=== PATIENT | female | born 1975 | race American Indian/Alaskan Native ===

== ENCOUNTER 2021-07-29 10:58 | Emergency (ER) | payer MEDICAID ==
[2021-07-29] MEDS ORDERED: ONDANSETRON 4 MG ODT TAB PO ONE (11:15)
[2021-07-29] MEDS ORDERED: ACETAMINOPHEN W/CODEINE 300-30 MG TAB PO ONE (11:15)
--- NOTE | 2021-07-29 11:18 | Emergency Department Report ---
ED General Adult HPI - General Chief complaint: Nausea/Vomiting/Diarrhea Stated complaint: CHILLS/BODY PAIN Time Seen by Provider: 07/29/21 11:10 Source: patient Mode of arrival: Ambulatory Limitations: No Limitations - History of Present Illness Initial comments: Patient is a 45-year-old female presents emergency room complaints of generalized body aches that began 4 days ago. She has associated chills. Patient states that she is also been having nausea and had one episode of vomiting this morning. She states that she is also been constipated and has not been able to have a bowel movement for approximately 4 days. She has not tried any medication for the constipation. She states that she has been tolerating p.o. intake and is still eating. She states that she feels like she needs to have a bowel movement but is unable and has been straining. She denies any fever, cough, shortness of breath, chest pain, abdominal pain, diarrhea, hemat ochezia, melena, hematemesis. No past medical history. No allergies to medications. She had a partial hysterectomy. She states that she has been fully vaccinated for COVID-19. - Related Data Previous Rx's Medication Instructions Recorded Last Taken Type HYDROcodone/APAP 5-325 [[place] 1 each PO Q6HR PRN #12 tablet 07/29/21 Unknown Rx 5/325] Ondansetron [Zofran Odt] 4 mg PO Q8HR PRN #10 tab.rapdis 07/29/21 Unknown Rx cephALEXin [Keflex] 500 mg PO BID 7 Days #14 cap 07/29/21 Unknown Rx Allergies Allergy/AdvReac Type Severity Reaction Status Date / Time No Known Allergies Allergy Unverified 07/29/21 11:05 ED Review of Systems ROS: Stated complaint: CHILLS/BODY PAIN Other details as noted in HPI Comment: All other systems reviewed and negative ED Past Medical Hx - Past Medical History Previous Medical History?: No - Surgical History Past Surgical History?: No - Medications Home Medications: Home Medications Medication Instructions Recorded Confirmed Last Taken Type HYDROcodone/APAP 5-325 [[place] 1 each PO Q6HR PRN #12 tablet 07/29/21 Unknown Rx 5/325] Ondansetron [Zofran Odt] 4 mg PO Q8HR PRN #10 tab.rapdis 07/29/21 Unknown Rx cephALEXin [Keflex] 500 mg PO BID 7 Days #14 cap 07/29/21 Unknown Rx ED Physical Exam - General Limitations: No Limitations General appearance: alert, in no apparent distress - Head Head exam: Present: atraumatic, normocephalic - Eye Eye exam: Present: normal appearance - ENT ENT exam: Present: mucous membranes moist - Respiratory Respiratory exam: Present: normal lung sounds bilaterally. Absent: respiratory distress, wheezes, rales, rhonchi, stridor, chest wall tenderness, accessory muscle use, decreased breath sounds, prolonged expiratory - Cardiovascular Cardiovascular Exam: Present: regular rate, normal rhythm, normal heart sounds. Absent: systolic murmur, diastolic murmur, rubs, gallop - GI/Abdominal GI/Abdominal exam: Present: soft, normal bowel sounds. Absent: distended, tende rness, guarding, rebound, rigid - Neurological Exam Neurological exam: Present: alert, oriented X3 - Psychiatric Psychiatric exam: Present: normal affect, normal mood - Skin Skin exam: Present: warm, dry, intact ED Course Vital Signs 07/29/21 07/29/21 07/29/21 11:05 11:28 11:31 Temperature 98.7 F Pulse Rate 88 Respiratory 16 Rate Blood Pressure 120/86 Blood Pressure [Right] O2 Sat by Pulse 98 99 Oximetry 07/29/21 07/29/21 07/29/21 11:32 12:20 12:22 Temperature 98.4 F 97.7 F 97.6 F Pulse Rate 73 81 66 Respiratory 16 14 12 Rate Blood Pressure 111/70 Blood Pressure 117/63 111/70 [Right] O2 Sat by Pulse 99 99 99 Oximetry 07/29/21 15:29 Temperature 97.7 F Pulse Rate 67 Respiratory 14 Rate Blood Pressure Blood Pressure 121/75 [Right] O2 Sat by Pulse 99 Oximetry ED Medical Decision Making - Lab Data Result diagrams: 07/29/21 11:31 07/29/21 11:31 Lab Results 07/29/21 07/29/21 07/29/21 Range/Units 11:31 11:31 11:50 WBC 17.0 H (4.5-11.0) K/mm3 RBC 4.90 (3.65-5.03) M/mm3 Hgb 15.5 H (10.1-14.3) gm/dl Hct 43.4 H (30.3-42.9) % MCV 89 (79-97) fl MCH 32 (28-32) pg MCHC 36 H (30-34) % RDW 15.1 (13.2-15.2) % Plt Count 172 (140-440) K/mm3 Lymph % (Auto) 6.4 L (13.4-35.0) % [place] % (Auto) 10.6 H (0.0-7.3) % Eos % (Auto) 0.0 (0.0-4.3) % Baso % (Auto) 0.3 (0.0-1.8) % Lymph # (Auto) 1.1 L (1.2-5.4) K/mm3 [place] # (Auto) 1.8 H (0.0-0.8) K/mm3 Eos # (Auto) 0.0 (0.0-0.4) K/mm3 Baso # (Auto) 0.1 (0.0-0.1) K/mm3 Seg Neutrophils % 82.7 H (40.0-70.0) % Seg Neutrophils # 14.1 H (1.8-7.7) K/mm3 Sodium 137 (137-145) mmol/L Potassium 3.5 L (3.6-5.0) mmol/L Chloride 100.5 (98-107) mmol/L Carbon Dioxide 21 L (22-30) mmol/L Anion Gap 19 mmol/L BUN 12 (7-17) mg/dL Creatinine 0.7 (0.6-1.2) mg/dL Estimated GFR > 60 ml/min BUN/Creatinine Ratio 17 % Glucose 106 H (65-100) mg/dL Calcium 9.3 (8.4-10.2) mg/dL Total Bilirubin 1.00 (0.1-1.2) mg/dL AST 52 H (5-40) units/L ALT 44 (7-56) units/L Alkaline Phosphatase 96 (35-129) units/L Total Creatine Kinase 55 (30-135) units/L Total Protein 8.1 (6.3-8.2) g/dL Albumin 4.2 (3.9-5) g/dL Albumin/Globulin Ratio 1.1 % Lipase 15 (13-60) units/L Urine Color [place] (Yellow) Urine Turbidity Clear (Clear) Urine pH 5.0 (5.0-7.0) Ur Specific [place] 1.029 (1.003-1.030) Urine Protein 100 mg/dl (Negative) mg/dL Urine Glucose (UA) Neg (Negative) mg/dL Urine Ketones 20 (Negative) mg/dL Urine Blood Mod (Negative) Urine Nitrite Neg (Negative) Urine Bilirubin Neg (Negative) Urine Urobilinogen 4.0 (<2.0) mg/dL Ur Leukocyte Esterase Sm (Negative) Urine WBC (Auto) 41.0 H (0.0-6.0) /HPF Urine RBC (Auto) 40.0 (0.0-6.0) /HPF U Epithel Cells (Auto) 6.0 (0-13.0) /HPF Urine Bacteria (Auto) 1+ (Negative) /HPF Urine Mucus 1+ /HPF Vital Signs 07/29/21 07/29/21 07/29/21 11:05 11:28 11:31 Temperature 98.7 F Pulse Rate 88 Respiratory 16 Rate Blood Pressure 120/86 Blood Pressure [Right] O2 Sat by Pulse 98 99 Oximetry 07/29/21 07/29/21 07/29/21 11:32 12:20 12:22 Temperature 98.4 F 97.7 F 97.6 F Pulse Rate 73 81 66 Respiratory 16 14 12 Rate Blood Pressure 111/70 Blood Pressure 117/63 111/70 [Right] O2 Sat by Pulse 99 99 99 Oximetry 07/29/21 15:29 Temperature 97.7 F Pulse Rate 67 Respiratory 14 Rate Blood Pressure Blood Pressure 121/75 [Right] O2 Sat by Pulse 99 Oximetry - Radiology Data Radiology results: report reviewed Ordering Physician: SUZI IBANEZ Date of Service: 07/29/21 Procedure(s): XR abdomen 2V Accession Number(s): [id number] cc: SUZI IBANEZ Fluoro Time In Minutes: ABDOMEN 2 view INDICATION / CLINICAL INFORMATION: constipation, vomiting. COMPARISON: None available. FINDINGS: TUBES / LINES: None. BOWEL GAS PATTERN: No significant abnormality. FREE AIR / EXTRALUMINAL GAS: None seen. ADDITIONAL FINDINGS: No significant additional findings. IMPRESSION: 1. No significant abnormality. Signer Name: Riley Nichols MD Signed: 07/29/2021 12:18 PM Workstation Name: [email or web address] Transcribed By: SB Dictated By: RILEY NICHOLS MD Electronically Authenticated By: RILEY NICHOLS MD Signed Date/Time: 07/29/211217 DD/ 17 TD/TT: Ordering Physician: SUZI IBANEZ Date of Service: 07/29/21 Procedure(s): CT abdomen pelvis w con Accession Number(s): [id number] cc: SUZI IBANEZ CT ABDOMEN AND PELVIS WITH CONTRAST HISTORY: abd pain, vomiting, leukocytosis 100 ml omni 300 COMPARISON: None TECHNIQUE: Routine abdominal and pelvic CT exam performed following intravenous contrast administration.. All CT scans at this location are performed using CT dose reduction for ALARA by means of automated exposure control. FINDINGS: CT ABDOMEN: Lung Bases: No significant abnormality. Liver: No significant abnormality. Biliary: No significant abnormality. Spleen: No significant abnormality. Unenlarged. Pancreas: No significant abnormality. Adrenals: No significant abnormality. Kidneys: There is decreased attenuation with patchy distribution in the left renal cortex. Lymphatics: No lymphadenopathy. Vasculature: No significant abnormality. Bowel/Peritoneum: No significant abnormality. No free air. No free fluid. CT PELVIC: : No significant abnormality. Lymphatics: No lymphadenopathy. Osseous Structures: No aggressive appearing osseous lesions. Additional Findings: None IMPRESSION: 1. Striated nephrogram appearance of the left kidney which usually indicates pyelonephritis. Differential considerations would include renal infarcts and lymphoma but this is considered be less likely. Signer Name: Akira Jackson MD Signed: 07/29/2021 3:13 PM Workstation Name: [id number] Transcribed By: PIERCE Dictated By: Akira Jackson MD Electronically Authenticated By: Akira Jackson MD Signed Date/Time: 07/29/211512 DD/ 11 TD/TT: - Medical Decision Making Patient is a 45-year-old female presents emergency room complaints of generalized body aches that began 4 days ago. She has associated chills. Patient states that she is also been having nausea and had one episode of vomiting this morning. She states that she is also been constipated and has not been able to have a bowel movement for approximately 4 days. She has not tried any medication for the constipation. She states that she has been tolerating p.o. intake and is still eating. She states that she feels like she needs to have a bowel movement but is unable and has been straining. She denies any fever, cough, shortness of breath, chest pain, abdominal pain, diarrhea, hematochezia, melena, hematemesis. No past medical history. No allergies to medications. She had a partial hysterectomy. She states that she has been fully vaccinated for COVID-19. vitals are normal. Labs with leukocytosis, mildly elevated AST, otherwise stable. UA shows evidence of UTI. CT abdomen pelvis with IV contrast: 1. Striated nephrogram appearance of the left kidney which usually indicates pyelonephritis. Differential considerations would include renal infarcts and lymphoma but this is considered be less likely. Patient given 1 g ceftriaxone while in the emergency department. Patient given pain medication and nausea medication with improvement of her symptoms, she was able to tolerate p.o. intake without difficulty and had no episodes of vomiting while in the ED. Patient given a copy of her CT report, will be referred to nephrology and primary care. Patient given prescription for medications. Advised patient Please take medication as prescribed. Increase your fluid intake. Follow-up with a primary care doctor. Follow-up with a formation testing operator. Return to emergency room for any new or worsening symptoms. Please take your CT report to the formation testing operator. Critical care attestation.: If time is entered above; I have spent that time in minutes in the direct care of this critically ill patient, excluding procedure time. ED Disposition Clinical Impression: Body aches, Chills, Pyelonephritis Abdominal pain Qualifiers: Abdominal location: unspecified location Qualified Code(s): R10.9 - Unspecified abdominal pain Nausea & vomiting Qualifiers: Vomiting type: unspecified Vomiting Intractability: non-intractable Qualified Code(s): R11.2 - Nausea with vomiting, unspecified Disposition: 01 HOME / SELF CARE / HOMELESS Is pt being admited?: No Does the pt Need Aspirin: No Condition: Stable Instructions: Pyelonephritis, Adult Additional Instructions: Please take medication as prescribed. Increase your fluid intake. Follow-up with a primary care doctor. Follow-up with a formation testing operator. Return to emergency room for any new or worsening symptoms. Please take your CT report to the formation testing operator. Prescriptions: cephALEXin [Keflex] 500 mg PO BID 7 Days #14 cap HYDROcodone/APAP 5-325 [[place] 5/325] 1 each PO Q6HR PRN #12 tablet PRN Reason: Pain , Severe (7-10) Ondansetron [Zofran Odt] 4 mg PO Q8HR PRN #10 tab.rapdis PRN Reason: vomiting Referrals: PRIMARY CARE, [Primary Care Provider] - 3-5 Days RACHEL SORENSEN MD [Staff Physician] - 3-5 Days Time of Disposition: 15:19 Print Language: FRENCH
[2021-07-29 11:58] LABS: Basophils # (Auto) 0.1 K/mm3 (0.0-0.1); Basophils % (Auto) 0.3 % (0.0-1.8); Lymphocytes # (Auto) 1.1 K/mm3 (1.2-5.4); Lymphocytes % (Auto) 6.4 % (13.4-35.0); Mean Corpuscular HGB Conc 36 % (30-34); Mean Corpuscular Volume 89 fl (79-97); Monocytes # (Auto) 1.8 K/mm3 (0.0-0.8); Monocytes % (Auto) 10.6 % (0.0-7.3); Platelet Count 172 K/mm3 (140-440); Red Cell Distribution Width 15.1 % (13.2-15.2)
[2021-07-29 12:11] LABS: Bacteria,Urine 1+ /HPF (Negative); Bilirubin,Urine NEG (Negative); Blood,Urine MOD (Negative); Color,Urine Amber (Yellow); Mucus,Urine 1+ /HPF
[2021-07-29 12:12] LABS: Hematocrit 43.4 % (30.3-42.9); Hemoglobin 15.5 gm/dl (10.1-14.3)
[2021-07-29 12:14] LABS: Alanine Aminotransferase 44 units/L (7-56); Albumin 4.2 g/dL (3.9-5); Blood Urea Nitrogen 12 mg/dL (7-17); Calcium 9.3 mg/dL (8.4-10.2)
[2021-07-29 12:19] LABS: BUN/Creatinine Ratio 17
--- NOTE | 2021-07-29 12:23 | XRay Report ---
ABDOMEN 2 view INDICATION / CLINICAL INFORMATION: constipation, vomiting. COMPARISON: None available. FINDINGS: TUBES / LINES: None. BOWEL GAS PATTERN: No significant abnormality. FREE AIR / EXTRALUMINAL GAS: None seen. ADDITIONAL FINDINGS: No significant additional findings. IMPRESSION: 1. No significant abnormality. Signer Name: Riley Nichols MD Signed: 07/29/2021 12:18 PM Workstation Name: [id number]
[2021-07-29] MEDS ORDERED: cefTRIAXone/NS 1 GM/50 ML 1 GM/50 ML BAG IV ONE (12:26)
--- NOTE | 2021-07-29 15:17 | Cat Scan Report ---
CT ABDOMEN AND PELVIS WITH CONTRAST HISTORY: abd pain, vomiting, leukocytosis 100 ml omni 300 COMPARISON: None TECHNIQUE: Routine abdominal and pelvic CT exam performed following intravenous contrast administrat ion.. All CT scans at this location are performed using CT dose reduction for ALARA by means of autom ated exposure control. FINDINGS: CT ABDOMEN: Lung Bases: No significant abnormality. Liver: No significant abnormality. Biliary: No significant abnormality. Spleen: No significant abnormality. Unenlarged. Pancreas: No significant abnormality. Adrenals: No significant abnormality. Kidneys: There is decreased attenuation with patchy distribution in the left renal cortex. Lymphatics: No lymphadenopathy. Vasculature: No significant abnormality. Bowel/Peritoneum: No significant abnormality. No free air. No free fluid. CT PELVIC: : No significant abnormality. Lymphatics: No lymphadenopathy. Osseous Structures: No aggressive appearing osseous lesions. Additional Findings: None IMPRESSION: 1. Striated nephrogram appearance of the left kidney which usually indicates pyelonephritis. Differen tial considerations would include renal infarcts and lymphoma but this is considered be less likely. Signer Name: Akira Jackson MD Signed: 07/29/2021 3:13 PM Workstation Name: [id number]
[2021-07-29 15:31] VITALS: BP 121/75
== END 2021-07-29 15:37 | disposition home or self-care (01) ==
LOC: ED 10:58
DX: N12 Tubulo-interstitial nephritis, not specified as acute or chronic (principal); R10.9 Unspecified abdominal pain; R11.2 Nausea with vomiting, unspecified; R68.83 Chills (without fever)
CPT/HCPCS: 36415; 74019; 74177; 80053; 81001; 82550; 83690; 85025; 87076; 87086; 87186; 96365; 99284; J0696; Q9967; Q0162

== ENCOUNTER 2022-07-16 21:55 | Emergency (ER) | payer SELFPAY ==
[2022-07-16 22:01] VITALS: BP 179/105
== END 2022-07-17 00:30 | disposition left against medical advice (07) ==
LOC: ED 21:55
DX: N93.9 Abnormal uterine and vaginal bleeding, unspecified (principal); Z53.21 Procedure and treatment not carried out due to patient leaving prior to being seen by health care provider